=== PATIENT | male | born 1980 | race African-American/Black ===

== ENCOUNTER → 2018-12-01 05:49 | Emergency (ER) | payer SELFPAY ==
[~2018-12-01] VITALS: Ht 177.8 cm; Wt 83.5 kg
[~2018-12-01 05:49] MED LIST: KETOROLAC TROMETH 30 MG/ML 1ML VIAL IV ONE; LORazepam 2MG/ML-1ML VIAL IV ONE; SODIUM CHLORIDE 0.9% 1,000 ML IV ONE; cefTRIAXone 1GM/50ML D5W 50 ML IV ONE
[2018-12-01 11:18] LABS: Basophils # (auto) 0.1 uL; Basophils % (auto) 1.1 % (0.0-2.0); Eosinophils # (auto) 0.2 uL; Eosinophils % (auto) 1.3 % (0.0-7.0); Hematocrit 42.8 % (41.0-53.0); Hemoglobin 13.9 g/dL (13.5-17.5); Lymphocytes # (auto) 2.6 uL; Mean Corpuscular Hgb Conc. 32.4 g/dL (32.0-36.0); Mean Corpuscular Volume 83.3 fL (80.0-100.0); Monocytes # (auto) 0.9 uL; Neutrophils # (auto) 8.6 uL; Neutrophils % (auto) 69.6 % (37.0-80.0); Platelet Count (auto) 304 10^3/uL (140-450); Red Blood Cells 5.15 10^6/uL (4.5-5.90); Red Cell Distribution Width 13.9 % (11.8-14.3); White Blood Cell 12.4 10^3/uL (4.4-10.8)
[2018-12-01 11:27] LABS: Albumin 3.7 g/dL (3.4-5.0); Calcium 9.2 mg/dL (8.5-10.1); Magnesium 2.4 mg/dL (1.6-2.6); Potassium 3.8 mmol/L (3.5-5.1)
[2018-12-01 11:32] LABS: BUN/Creatinine Ratio 8.5; Bilirubin, Total 0.3 mg/dL (0.2-1.0); Total Protein 8.3 g/dL (6.4-8.2)
[2018-12-01 14:49] VITALS: BP 122/71
== END | disposition home or self-care (01) ==
LOC: ER 05:49
DX: K04.7 Periapical abscess without sinus (principal); M26.53 Deviation in opening and closing of the mandible; M79.89 Other specified soft tissue disorders; F17.210 Nicotine dependence, cigarettes, uncomplicated
CPT/HCPCS: 36415; 70486; 80053; 83735; 85025; 96365; 96375; 99284; J0696; J1885; J2060; J7030

== ENCOUNTER 2025-09-18 06:12 | Day surgery (SDC) | payer MEDICAID ==
[2025-09-11 11:02] LABS: INR 0.97 (0.9-1.15); Partial Thromboplastin Time 26.3 SEC (24.5-34.5); Prothrombin Time 10.3 sec (9.3-11.8)
[2025-09-11 11:06] LABS: Urine Protein, UAD TRACE (Negative)
[2025-09-11 11:11] LABS: Hematocrit 37.2 % (41.0-53.0); Hemoglobin 12.4 g/dL (13.5-17.5); Mean Corpuscular Hemoglobin 29.4 pg (28.0-32.0); Mean Corpuscular Volume 88.3 fL (80.0-100.0); Nucleated Red Blood Cells % 0.1 %
[2025-09-11 11:21] LABS: Alanine Aminotransferase 18 U/L (7-40); Albumin 4.5 g/dL (3.2-4.8); Alkaline Phosphatase 102 U/L (46-116); Anion Gap 4 (5-15); BUN/Creatinine Ratio 11.1 (10.0-20.0); Blood Urea Nitrogen 13 mg/dL (9-23); Calcium 9.2 mg/dL (8.7-10.4); Carbon Dioxide 30 mmol/L (20-31); Glucose 86 mg/dL (74-106); Potassium 4.3 mmol/L (3.5-5.1); Sodium 141 mmol/L (136-145)
[2025-09-11 11:22] LABS: Bilirubin, Total 0.4 mg/dL (0.2-1.0)
[2025-09-11 11:23] LABS: Chloride 107 mmol/L (98-107); Total Protein 8.7 g/dL (5.7-8.2)
--- NOTE | 2025-09-17 20:19 | DVHHP2 ---
History Allergies: Coded Allergies: NO KNOWN ALLERGIES (Unverified , 12/01/18) Chief Complaint: Pilonidal cyst Present Illness(Onset/Duration Mr. Sosa is a 45-year-old male who presents today for elective pilonidal cyst excision. Patient has had chronic drainage from the upper part of the right gluteal cleft for several years now. Patient states the area gets recurrently indurated and then drains, heels and then at later time it comes right back. Patient states areas not actively draining at this point, feels good, denies fevers, chills, nausea, vomiting. No new questions or concerns this morning Noncontributory Past Surgical History Exploratory laparotomy : Past medical history: Neuropathy, seizures, bowel perforation Physical Exam Skin Lower back/superior gluteal cleft area with right chronic scarred area no active pus/drainage, no erythema, no fluctuance, midline upper gluteal cleft draining pits Chest and Lungs Nonlabored breathing with symmetric expansion Abdomen Flat, scar well healed, nontender Extremities Moves all, no injuries positive distal pulses x4 Plan Mr. Sosa is a 45-year-old male who presents for elective pilonidal cyst excision. He has no questions this morning I would like to proceed with surgery as planned. Pre operative Labs and x-ray reviewed, no abnormalities. We will proceed with pilonidal cyst excision. PARRISH MORFIN MD Sep 17, 2025 20:19
[~2025-09-18] VITALS: Ht 177.8 cm; Wt 74.8 kg
[~2025-09-18 06:12] MED LIST changes: -KETOROLAC TROMETH 30 MG/ML 1ML VIAL IV ONE; -LORazepam 2MG/ML-1ML VIAL IV ONE; -SODIUM CHLORIDE 0.9% 1,000 ML IV ONE; +[UNRECOGNIZED DRUG - CODE] IV; -cefTRIAXone 1GM/50ML D5W 50 ML IV ONE
[2025-09-18] MEDS ORDERED: ceFAZolin 2 GM/D5W50ml 50 ML IV ONE (06:32)
[2025-09-18] MEDS ORDERED: METOCLOPRAMIDE HCL 5MG/ml INJ 2ml VIAL IV PRN (07:15)
[2025-09-18] MEDS ORDERED: ONDANSETRON HCL 4 MG/2 ML VIAL IV PRN (07:15)
[2025-09-18] MEDS ORDERED: KETOROLAC TROMETH 30 MG/ML 1ML VIAL IV ONE (07:15)
[2025-09-18] MEDS ORDERED: HYDROmorphone HCL 2 MG/ML VL/or syr IV PRN (07:15)
[2025-09-18] MEDS ORDERED: METHYLENE BLUE 0.5% 5MG/ML 10ml AMP IV ONE (07:18)
[2025-09-18] MEDS ORDERED: MIDAZOLAM HCL 2MG/2ML 2ml VIAL (1mg/ml) ONE (07:20)
[2025-09-18] MEDS ORDERED: fentaNYL CITRATE 100 MCG/2 ML VL ONE (07:20)
[2025-09-18] MEDS ORDERED: ONDANSETRON HCL 4 MG/2 ML VIAL ONE (07:21)
[2025-09-18] MEDS ORDERED: LIDOCAINE 2% (LOCAL ANESTH.) PF 5ml SDV ONE (07:21)
[2025-09-18] MEDS ORDERED: METOCLOPRAMIDE HCL 5MG/ml INJ 2ml VIAL ONE (07:21)
[2025-09-18] MEDS ORDERED: ROCURONIUM 10MG/ML 10ML VIAL IV ONE (07:21)
[2025-09-18] MEDS ORDERED: PROPOFOL 10 MG/ML 20 ML IV ONE (07:21)
[2025-09-18] MEDS ORDERED: SODIUM CHLORIDE LOCK 10 ML ONE (07:43)
[2025-09-18] MEDS: LIDOCAINE W/ EPINEPHRINE 1% 20ML VIAL ONE (08:00)
[2025-09-18] MEDS: BUPIVACAINE 0.25% INJ 50ML VIAL ONE (08:00)
[2025-09-18] MEDS ORDERED: HYDROmorphone HCL 2 MG/ML VL/or syr ONE (08:02)
[2025-09-18] MEDS ORDERED: SUGAMMADEX 200mg/2ml Vial (100MG/ML) IV ONE (08:16)
[2025-09-18] MEDS ORDERED: BACITRACIN TOP OINT 1 UD PKG TOP ONE (08:26)
[2025-09-18 08:48] VITALS: PULSE 88; RESP 12; TEMP 97.1; O2SAT 97
[2025-09-18 09:00] VITALS: PULSE 69; RESP 16; O2SAT 96
[2025-09-18 09:33] VITALS: BP 151/80; PULSE 68; RESP 14; O2SAT 99
--- NOTE | 2025-09-18 13:50 | DVHOP2 ---
Operative Report - 2 Report Details Date: 09/18/25 Preop Diagnosis: Pilonidal cyst Postop Diagnosis: Pilonidal cyst Surgeon: Zach Sanchez MD Block Paver: Rios Suazo NP Anesthesiologist: Jarvis devine CRNA Anesthesia: General Consent: The patient was informed of the risks and benefits of the procedure. These include but are not limited to complications of anesthesia, postoperative infection, incomplete relief of symptoms, recurrence of symptoms, damage to blood vessels, nerves and tendons, deep venous thrombosis, pulmonary embolism and possible need for repeat surgery in the future. Complications: None Estimated Blood Loss: 5 mL Findings: Pilonidal cyst and sinus tract extending from superior right buttock to upper midline cleft. Indications for Surgery: Pilonidal cyst Name of Procedure Performed Pilonidal cyst excision Procedure Details Procedure Details: Upon arrival to the operating room the patient was transferred to the operating table and placed in the supine position. General endotracheal anesthesia was induced. Patient was then placed in the prone alondra-knife position. Time-out was observed. Patient was then prepped and draped in the standard sterile surgical fashion with Betadine-Betadine. I then directed my attention to the upper gluteal cleft area and right upper buttock area (had an area of scarring induration). I then proceeded to use a lacrimal probe and inserted it through the right buttock scarred tissue, lacrimal probe exited do the pit in the upper gluteal cleft area. I then utilized a mixture of hydrogen peroxide and methylene blue, and injected it through the tract opening in the right buttock area, it exited through the pit in the upper gluteal cleft area. Lacrimal probe was reinserted into the sinus tract. I then proceeded to make an elliptical incision to include both the pit in the upper midline cleft area and the right buttock scar tissue. Skin along with pilonidal cyst and sinus tract was completely excised down to presacral fascia. No methylene blue was seen in the tissue left behind on the patient. I then achieved hemostasis with cautery device. I then irrigated the wound with sterile saline. Wound was approximately 8-9 cm in length by 3-4 cm in width by 0.5 to 1 cm in depth. Wound edges were able to reapproximate without tension, so I decided to close the wound. I closed the wound in layers, starting with the deep subcu and presacral fascia, where I closed it with interrupted 2 0 Vicryl stitches. I then closed the deep dermis with a running 3-0 Vicryl. Skin was closed with interrupted 2-0 nylon sutures. All counts complete and correct at the end the procedure. A mixture of 1% lidocaine and 0.25% Marcaine was used as local anesthetic. Bacitracin was placed over the incision, dressed with Xeroform gauze, 4 x 4 gauze, ABD pad and tape. Patient tolerated the procedure well and was transferred to PACU in stable condition. Specimen: Pilonidal cyst and sinus tract Condition Stable Disposition Home ZACH MORFIN MD Sep 18, 2025 08:38
== END 2025-09-18 09:52 | disposition home or self-care (01) ==
LOC: SUR 06:12
PROVIDERS: ATTEND Student in an Organized Health Care Education/Training Program
DX: L05.91 Pilonidal cyst without abscess (principal); G62.9 Polyneuropathy, unspecified; F17.210 Nicotine dependence, cigarettes, uncomplicated; Z79.899 Other long term (current) drug therapy; Z98.890 Other specified postprocedural states
CPT/HCPCS: 11771; 36415; 80053; 81001; 85025; 85610; 85730; J0690; J1171; J2003; J2250; J2405; J2704; J2765; J3010; Q9968; J3490

== ENCOUNTER 2025-10-09 09:15 | Day surgery (SDC) | payer MEDICAID ==
[2025-10-08 12:41] LABS: Urine Protein, UAD Negative (Negative)
[2025-10-08 12:43] LABS: Hematocrit 36.3 % (41.0-53.0); Hemoglobin 11.9 g/dL (13.5-17.5); Mean Corpuscular Hemoglobin 28.8 pg (28.0-32.0); Mean Corpuscular Volume 87.9 fL (80.0-100.0); Nucleated Red Blood Cells % 0.1 %
[2025-10-08 12:50] LABS: INR 0.97 (0.9-1.15); Partial Thromboplastin Time 26.2 SEC (24.5-34.5); Prothrombin Time 10.3 sec (9.3-11.8)
[2025-10-08 13:01] LABS: Alanine Aminotransferase 27 U/L (7-40); Albumin 4.7 g/dL (3.2-4.8); Alkaline Phosphatase 110 U/L (46-116); Anion Gap 6 (5-15); BUN/Creatinine Ratio 16.3 (10.0-20.0); Bilirubin, Total 0.4 mg/dL (0.2-1.0); Blood Urea Nitrogen 21 mg/dL (9-23); Calcium 9.3 mg/dL (8.7-10.4); Carbon Dioxide 29 mmol/L (20-31); Chloride 105 mmol/L (98-107); Glucose 86 mg/dL (74-106); Potassium 4.4 mmol/L (3.5-5.1); Sodium 140 mmol/L (136-145)
[2025-10-08 13:06] LABS: Total Protein 8.9 g/dL (5.7-8.2)
[~2025-10-09] VITALS: Ht 177.8 cm; Wt 77.1 kg
[2025-10-09] MEDS ORDERED: MIDAZOLAM HCL 2MG/2ML 2ml VIAL (1mg/ml) ONE (10:23)
[2025-10-09] MEDS ORDERED: fentaNYL CITRATE 100 MCG/2 ML VL ONE (10:23)
[2025-10-09] MEDS ORDERED: PROPOFOL 10 MG/ML 20 ML IV ONE (10:27)
[2025-10-09 10:45] VITALS: PULSE 52; RESP 15; TEMP 97.9; O2SAT 100
[2025-10-09 10:55] VITALS: PULSE 62; RESP 17; O2SAT 100
[2025-10-09 11:15] VITALS: BP 128/83; PULSE 57; RESP 16; O2SAT 98
--- NOTE | 2025-10-09 18:29 | DVHHP2 ---
GI H&P Pre-Op Assessment Date: 10/09/25 Chief complaint: colon cancer screening HPI: per clinic note Past medical history: per clinic note Past surgical history: per clinic note Family history: per clinic note Physical exam: General: NAD, AAOX3 HEENT: PERRL, no scleral icterus, normal hearing, gums without lesions or bleeding, oropharynx clear without erythema or exudate. Neck: Supple without enlargement of the thyroid, or lymphadenopathy. Chest: Normal size and shape, no tenderness, lung centeno clear to auscultation and percussion, nonlabored breathing. Heart: RRR, no murmur Abdomen: non-distended, no tenderness to palpation, +BS, no hepatosplenomegaly Extremities: no edema Neurological: CN II-XII intact, sensation intact in all extremities, 5+ strength in all extremities Skin: No rashes, No jaundice Assessment: - colon cancer screening Plan: - Colonoscopy - Risks (bleeding, infection, perforation, reaction to sedation medications and cardiopulmonary arrest) and benefit of the procedure were explained to patient. Patient agrees to undergo the procedure. DENISE HOWARD MD Oct 09, 2025 18:29
--- NOTE | 2025-10-09 18:32 | DVHOP2 ---
Operative Report DATE OF OPERATION: 10/09/25 PROCEDURE: Colonoscopy. PREOPERATIVE INDICATION: The patient is a 45 -year-old male undergoing colonoscopy for colon cancer screening. POSTOPERATIVE DIAGNOSES: 1. Anal papilla PROCEDURE PERFORMED BY: Dominick Vela M.D. SCOPE: Olympus videocolonoscope. ASA CLASS: 3 PREOPERATIVE MEDICATIONS: MAC with Dr Hampton PROCEDURE IN DETAIL: After obtaining an informed consent, the patient was placed on left lateral decubitus position. He was then sedated by Dr Hampton. A rectal examination was performed that was normal. The colonoscope was then passed through the anus into the rectosigmoid and through the descending, transverse, and ascending colon up to the cecum with visualization of the appendiceal orifice, base of the cecum and the ileocecal valve. No mass or polyp was observed. There was anal papilla. The colonoscope was then withdrawn. The patient tolerated the procedure well without difficulty. WITHDRAWAL TIME: 6 minutes QUALITY OF THE PREP: [place] Bowel Prep score:6 COMPLICATIONS : None SPECIMENS: None DISPOSITION: D/C to home PLAN: 1. Repeat colonoscopy in 10 years for colon cancer screening. DOMINICK VELA MD Oct 09, 2025 18:32
--- NOTE | 2025-10-09 18:32 | DVHDS2 ---
Physician Discharge Progress N Final Diagnosis: anal papilla Operations or Procedures: Operations or Procedures colonoscopy Condition on Discharge: Good Disposition: Home Discharge Instructions: Diet: Regular Activity: No Restrictions, As Tolerated Medications: resume previous home medications Follow Up Care: Discharge Statement: "Patient was advised to return to the ER or call 911 if any headaches, dizziness, shortness of breath, chest pain, abdominal pain, bleeding, fevers, or worsening of medical condition. Patient was counseled about treatment plan, medications, possible side effects, patientverbalized understanding. All questions were answered to the best of my ability. This discharge took greater then 30 minutes in planning, reviewing documentation, counseling the patient, and discussing with other team members." DENISE HOWARD MD Oct 09, 2025 18:32
== END 2025-10-09 11:33 | disposition home or self-care (01) ==
LOC: GI 09:15
PROVIDERS: ATTEND Internal Medicine Gastroenterology
DX: Z12.11 Encounter for screening for malignant neoplasm of colon (principal); K64.4 Residual hemorrhoidal skin tags; I10 Essential (primary) hypertension; G62.9 Polyneuropathy, unspecified; G40.909 Epilepsy, unspecified, not intractable, without status epilepticus; Z79.899 Other long term (current) drug therapy; Z98.890 Other specified postprocedural states
CPT/HCPCS: 36415; 45378; 80053; 81001; 85025; 85610; 85730; J1100; J2250; J2704; J3010